=== PATIENT | female | born 1995 | race Caucasian/White ===

== ENCOUNTER 2021-05-14 15:55 | Emergency (ER) | payer OTHER ==
[2021-05-14 16:52] LABS: HEMOGLOBIN 16.2 gm/dl (12.3-15.3); RED BLOOD COUNT 5.02 M/UL (4.00-5.10); WHITE BLOOD COUNT 7.1 K/UL (4.5-11.0)
[2021-05-14 17:15] LABS: BUN/CREATININE RATIO 11 (0-10)
== END 2021-05-14 18:55 | disposition home or self-care (01) ==
LOC: ER1 15:55
PROVIDERS: Physician Assistant
DX: R10.11 Right upper quadrant pain (principal); R10.31 Right lower quadrant pain; Z88.7 Allergy status to serum and vaccine; F17.210 Nicotine dependence, cigarettes, uncomplicated; R11.0 Nausea; R19.7 Diarrhea, unspecified
CPT/HCPCS: 80053; 81001; 83690; 84703; 85025; 87086; 96374; 99284; J2765; Q9967